=== PATIENT | female | born 1945 | race African-American/Black ===

== ENCOUNTER 2017-02-24 14:06 | Emergency (ER) | payer MEDICARE, OTHER ==
[2017-02-24] MEDS ORDERED: 0.9 % SODIUM CHLORIDE 10 ML DISP.SYRIN. IV (14:30)
[2017-02-24 14:39] LABS: BILIRUBIN,URINE NEGATIVE (NEG); CLARITY,URINE CLEAR; COLOR,URINE YELLOW; GLUCOSE,URINE NEGATIVE (NEG); NITRITE,URINE NEGATIVE (NEG); PH,URINE 7.5; PROTEIN,URINE NEGATIVE (NEG-TRACE); UROBILINOGEN,URINE 0.2 mg/dL (0.2 mg/dL)
[2017-02-24 14:42] LABS: ADD MAN DIFF? NO
[2017-02-24 14:48] LABS: BASO # 0.1 x10^3/uL (0.0-0.2); BASO % 1 % (0-3); EOS # 0.6 x10^3/uL (0.0-0.7); EOS % 8 % (0-3); HEMATOCRIT 42.7 % (36.0-47.0); HEMOGLOBIN 13.8 g/dL (12.0-15.5); LYMPH % 50 % (24-48); MEAN CORPUSCULAR HEMOGLOBIN 27 pg (25-35); MEAN CORPUSCULAR HGB CONC 32 g/dL (31-37); MEAN CORPUSCULAR VOLUME 82 fL (79-100); MONO # 0.6 x10^3/uL (0.0-1.1); MONO % 8 % (0-9); NEUT # 2.7 x10^3uL (1.8-7.7); NEUT % 34 % (31-73); PLATELET COUNT 271 x10^3/uL (140-400); RED CELL DISTRIBUTION WIDTH 15.6 % (11.5-14.5); WHITE BLOOD COUNT 8.1 x10^3/uL (4.0-11.0)
[2017-02-24 14:58] LABS: ANION GAP 12 (6-14); BLOOD UREA NITROGEN 14 mg/dL (7-20); CALCIUM 9.3 mg/dL (8.5-10.1); CARBON DIOXIDE 29 mmol/L (21-32); CHLORIDE 104 mmol/L (98-107); CREATININE 0.9 mg/dL (0.6-1.0); GFR 74.7; GLUCOSE 82 mg/dL (70-99); SODIUM 145 mmol/L (136-145)
[2017-02-24 15:02] LABS: BACTERIA,URINE 0 /HPF (0-FEW); SQUAMOUS EPITHELIAL CELL,UR MANY /LPF
[2017-02-24 15:03] LABS: ALBUMIN 3.8 g/dL (3.4-5.0); ALK PHOS 64 U/L (46-116); ALT (SGPT) 38 U/L (14-59); AST (SGOT) 28 U/L (15-37); DIRECT BILIRUBIN 0.1 mg/dL (0.0-0.2); LIPASE 156 U/L (73-393); TOTAL BILIRUBIN 0.4 mg/dL (0.2-1.0); TOTAL PROTEIN 7.3 g/dL (6.4-8.2)
[2017-02-24 15:07] LABS: POTASSIUM 3.9 mmol/L (3.5-5.1)
[2017-02-24 15:10] LABS: THYROID STIM HORMONE (TSH) 1.752 uIU/mL (0.358-3.74)
[2017-02-24 15:11] LABS: CKMB INDEX 0.6 % (0-4); CKMB MASS 0.8 ng/mL (0.0-3.6); CREATINE KINASE 132 U/L (26-192)
[2017-02-24 15:11] LABS: NT-PRO BNP 8 pg/mL (0-124)
[2017-02-24 15:17] LABS: TROPONINI < 0.017 ng/mL (0.000-0.055)
[2017-02-24] MEDS: IV NORMAL SALINE 1000ML BAG 1,000 ML IV (15:29)
[2017-02-24 15:37] LABS: D-DIMER 0.47 ug/mlFEU (0.00-0.50)
[2017-02-24] MEDS: ASPIRIN CHEWABLE 81 MG TABLET. PO (15:58)
== END 2017-02-24 16:00 | disposition home or self-care (01) ==
LOC: ER 14:06
DX: R07.89 Other chest pain (principal); I10 Essential (primary) hypertension; Z79.82 Long term (current) use of aspirin; Z88.0 Allergy status to penicillin; Z88.1 Allergy status to other antibiotic agents; Z88.5 Allergy status to narcotic agent; Z88.6 Allergy status to analgesic agent; Z88.8 Allergy status to other drugs, medicaments and biological substances
CPT/HCPCS: 36415; 71045; 80048; 80076; 81001; 82553; 83690; 83735; 83880; 84443; 84484; 85025; 85379; 87086; 93005; 96360; 99285-25; J7030